=== PATIENT | female | born 1960 | race Two or more races ===

== ENCOUNTER 2020-01-04 20:12 | Emergency (ER) | payer OTHER ==
[~2020-01-04] VITALS: Ht 170.2 cm; Wt 70.0 kg
[2020-01-04] MEDS ORDERED: ENAL10TA2 PO (21:24)
[2020-01-04] MEDS ORDERED: AMOXICILLIN PO (21:24)
[2020-01-04 21:45] VITALS: BP 142/89
== END 2020-01-04 22:14 | disposition home or self-care (01) ==
LOC: EMS 20:12
DX: K04.7 Periapical abscess without sinus (principal); R42 Dizziness and giddiness; R11.0 Nausea

== ENCOUNTER 2022-09-08 14:09 | Emergency (ER) | payer OTHER ==
[~2022-09-08] VITALS: Ht 167.6 cm; Wt 72.0 kg
[~2022-09-08 14:09] MED LIST: AMOXICILLIN PO; ENAL-90 PO
[2022-09-08] MEDS ORDERED: ENAL20TA18 PO ×3 (14:28→16:00)
[2022-09-08] MEDS ORDERED: ATOR40TA71 PO (14:39)
[2022-09-08] MEDS ORDERED: FLUT16SP NASAL (14:39)
[2022-09-08] MEDS ORDERED: ACETAMINOPHEN 500 MG TABLET PO ONE (14:45)
[2022-09-08 15:03] LABS: BASOPHILS % (AUTO) 0.7 % (0.0-2.0); EOSINOPHILS % (AUTO) 0.6 % (1.0-6.0); HEMATOCRIT 42.9 % (36-46); HEMOGLOBIN 14.4 g/dL (12.0-16.0); LYMPHOCYTES # (AUTO) 1.5 K/uL (1.0-4.8); LYMPHOCYTES % (AUTO) 26.7 % (22.0-44.0); MEAN CORPUSCULAR HEMOGLOBIN 31.2 pg (26.0-34.0); MEAN CORPUSCULAR HGB CONC 33.5 G/dL (31.0-37.0); MEAN CORPUSCULAR VOLUME 93 fL (80-100); MONOCYTES # (AUTO) 0.4 K/uL (0.1-1.0); MONOCYTES % (AUTO) 7.2 % (2.0-9.0); NEUTROPHILS # (AUTO) 3.6 K/uL (1.8-7.7); NEUTROPHILS % (AUTO) 64.8 % (40.0-70.0); PLATELET COUNT (AUTO) 182 K/uL (150-450); RED BLOOD CELL COUNT(AUTO) 4.62 MIL/uL (4.00-5.20); RED CELL DISTRIBUTION WIDTH 13.4 % (11.5-14.5)
[2022-09-08 15:11] LABS: ANION GAP 8 mmol/L (8-16); CALCIUM, TOTAL 9.4 mg/dL (8.8-10.5); CARBON DIOXIDE 27 mmol/L (22-29); CHLORIDE 105 mmol/L (98-107); CREATININE 0.65 mg/dL (0.60-1.30); GLOMERULAR FILTR. RATE CALC > 60 mL/min (>60); GLUCOSE,RANDOM 88 mg/dL (70-110); SODIUM SERUM 140 mmol/L (136-145); UREA NITROGEN, BLOOD 13 mg/dL (7-18)
[2022-09-08 16:09] VITALS: BP 144/95
== END 2022-09-08 16:19 | disposition home or self-care (01) ==
LOC: EMS 14:15
DX: R51.9 Headache, unspecified (principal); R06.00 Dyspnea, unspecified; I10 Essential (primary) hypertension
CPT/HCPCS: 70450; 71045; 80048; 84484; 85025; 93005; 99285; 36415-L1; 36415-TC